=== PATIENT | male | born 1990 | race Caucasian/White ===

== ENCOUNTER 2020-06-18 03:17 | Emergency (ER) | payer MEDICAID ==
[~2020-06-18 03:17] MED LIST: CLIN-97 PO; NO HOME MEDS
--- NOTE | 2020-06-18 03:17 | NUR ---
PT ARRIVED BY EMS AND REFUSED TO BE TREATED OR TRIAGED, WAS AWAKE, ALERT AND ORIENTED, MOVING AND SPEAKING RAPIDLY. ER MD SPOKE WITH PT WHO STILL ADAMANTLY REFUSED TO BE SEEN OR TRIAGED, PT LEFT THE ER
--- NOTE | 2020-06-18 03:17 | NUR ---
EMS WAS CALLED BY [facility] STAFF, PT HAD SAID HE'D SMOKED METH AND FENTANYL APPROX 2 HOURS AGO, JUST BEFORE HE WAS TAKEN TO [facility]. PT HAD JUST BEEN RELEASED WHEN EMS WAS CALLED, PT HAD APPARENTLY BEEN "NODDING OFF". PT SHOWING NO SIGNS OF DROWSINESS UPON ARRIVAL TO ER, WAS AGITATED
== END 2020-06-18 03:18 | disposition left against medical advice (07) ==
LOC: ER 03:18
DX: T50.905A Adverse effect of unspecified drugs, medicaments and biological substances, initial encounter (principal); Z53.21 Procedure and treatment not carried out due to patient leaving prior to being seen by health care provider; Y92.89 Other specified places as the place of occurrence of the external cause

== ENCOUNTER 2024-01-27 06:45 | Emergency (ER) | payer MEDICAID, OTHER ==
[~2024-01-27] VITALS: Ht 167.6 cm; Wt 86.4 kg
[2024-01-27 08:18] VITALS: BP 158/94; PULSE 104; RESP 16; TEMP 98.3; O2SAT 98
== END 2024-01-27 08:19 ==
LOC: ER 06:45
DX: T40.2X1A Poisoning by other opioids, accidental (unintentional), initial encounter (principal); J45.909 Unspecified asthma, uncomplicated; F15.90 Other stimulant use, unspecified, uncomplicated; Y92.89 Other specified places as the place of occurrence of the external cause
CPT/HCPCS: 99283